=== PATIENT | male | born 1950 | race Caucasian/White ===

== ENCOUNTER 2020-08-12 22:06 | Emergency (ER) | payer OTHER, MEDICARE ==
--- NOTE | 2020-08-12 22:18 | ER Document Report ---
ED Medical Screen (RME) - General Chief Complaint: Fever Stated Complaint: FEVER Time Seen by Provider: 08/12/20 22:12 Primary Care Provider: MARKEL WARD MD [Primary Care Provider] - Follow up as needed Mode of Arrival: Medic Information source: Patient, Emergency Med Personnel Notes: 69-year-old male presented to ED for fever. He does have a history of aortic valve replacement COPD mild cardiac infarction. In route EMS did do a rapid Covid which was negative his lactate was 0.9 he did have a fever when they first picked him up of 100.4 with a pulse of 97. His last temperature was 99.7 after they gave him 975 of Tylenol. Vital signs in the pit area were temperature 99.8 pulse 97 blood pressure 105/63 respirations 24 and O2 sat 97% due to the fact that his blood pressure went from 145/81 by EMS to 105/63 at initial vital signs we did decide to redraw his blood pressure and blood pressure now 99/54. He did have a [place] in mid May with a mitral valve replacement and states he has been sick since his [place]. He states he does have a home health nurse since he came back home. He states he has been sick since he got out of the hospital. I have greeted and performed a rapid initial assessment of this patient. A comprehensive ED assessment and evaluation of the patient, analysis of test results and completion of medical decision making process will be conducted by an additional ED providers. TRAVEL OUTSIDE OF THE [place] IN LAST 30 DAYS: No Physical Exam - Vital signs Vitals: Temp Pulse Resp BP Pulse Ox 99.8 F 97 24 H 105/63 97 08/12/20 22:12 08/12/20 22:12 08/12/20 22:12 08/12/20 22:12 08/12/20 22:12 Course - Vital Signs Vital signs: Temp Pulse Resp BP Pulse Ox 99.8 F 97 24 H 99/54 L 97 08/12/20 22:12 08/12/20 22:12 08/12/20 22:12 08/12/20 22:24 08/12/20 22:12 Doctor's Discharge - Discharge Referrals: MARKEL WARD MD [Primary Care Provider] - Follow up as needed
[2020-08-12] MEDS ORDERED: NORMAL SALINE 1000 ML 1,000 ML IV ONE (22:40)
[2020-08-12 22:50] LABS: ABSOLUTE BASOPHILS # (AUTO) 0.1 10^3/uL (0.0-0.2); ABSOLUTE EOSINOPHILS # (AUTO) 0.1 10^3/uL (0.0-0.6); ABSOLUTE LYMPHOCYTES (AUTO) 0.7 10^3/uL (0.5-4.7); ABSOLUTE MONOCYTES (AUTO) 0.5 10^3/uL (0.1-1.4); ABSOLUTE NEUT (AUTO) 9.3 10^3/uL (1.7-8.2); BASOPHILS % (AUTO) 1.4 % (0-2); EOSINOPHILS % (AUTO) 0.7 % (0-6); HEMATOCRIT 32.8 % (37.9-51.0); HEMOGLOBIN 11.4 g/dL (13.5-17.0); LYMPHOCYTES % (AUTO) 6.6 % (13-45); MEAN CORPUSCULAR HEMOGLOBIN 30.3 pg (27.0-33.4); MEAN CORPUSCULAR HGB CONC 34.9 g/dL (32.0-36.0); MEAN CORPUSCULAR VOLUME 87 fl (80-97); MONOCYTES % (AUTO) 4.7 % (3-13); PLATELET COUNT 281 10^3/uL (150-450); RED BLOOD COUNT 3.77 10^6/uL (4.35-5.55); RED CELL DISTRIBUTION WIDTH 16.3 % (11.5-14.0); SEGMENTED NEUTROPHILS % (AUTO) 86.6 % (42-78); TOTAL CELLS COUNTED % (AUTO) 100 %; WHITE BLOOD COUNT 10.7 10^3/uL (4.0-10.5)
[2020-08-12 23:03] LABS: ALBUMIN 3.6 g/dL (3.5-5.0); ALKALINE PHOSPHATASE 143 U/L (38-126); ANION GAP 9 (5-19); ASPARTATE AMINO TRANSFERASE 43 U/L (17-59); BILIRUBIN,DIRECT 0.1 mg/dL (0.0-0.4); BILIRUBIN,TOTAL 0.4 mg/dL (0.2-1.3); BLOOD UREA NITROGEN 34 mg/dL (7-20); CALCIUM 8.8 mg/dL (8.4-10.2); CARBON DIOXIDE 27 mmol/L (22-30); CHLORIDE 95 mmol/L (98-107); GLUCOSE 147 mg/dL (75-110); POTASSIUM 4.8 mmol/L (3.6-5.0); TOTAL PROTEIN 8.4 g/dL (6.3-8.2)
[2020-08-12 23:10] LABS: INTERNATIONAL RATION (INR) 1.06
[2020-08-12 23:11] LABS: PARTIAL THROMBOPLASTIN TIME 32.7 SEC (23.5-35.8)
--- NOTE | 2020-08-13 00:17 | RADIOLOGY REPORT (SQ) ---
EXAM DESCRIPTION: CHEST SINGLE VIEW CLINICAL HISTORY: 69 years Male, Cough fever COMPARISON: None. FINDINGS: Lungs: Lungs are clear. No pneumonia or edema. No pneumothorax or pleural effusion. Mediastinum: Vascular calcifications are present in the thoracic aorta. Heart size is normal. Bones: Sternal wires are identified. IMPRESSION: No acute process. No pneumonia or edema.
[2020-08-13] MEDS ORDERED: NORMAL SALINE 1000 ML 1,000 ML IV ONE (01:23)
--- NOTE | 2020-08-13 02:37 | ER Document Report ---
ED General - General Chief Complaint: Fever Stated Complaint: FEVER Time Seen by Provider: 08/12/20 22:12 Primary Care Provider: MARKEL WARD MD [NO LOCAL MD] - Follow up as needed Mode of Arrival: Medic Information source: Patient TRAVEL OUTSIDE OF THE [place] IN LAST 30 DAYS: No - HPI Context: Chief Complaint: [Weakness and fever] [ This is a 69-year-old male with history of ME back in May 2020, heart valve replacement, COPD presenting with a chief complaint of low-grade fever and generalized weakness. Patient states his symptoms started today. Patient denies chills, history of Covid infection, known exposure to Covid positive persons or persons under investigation for Covid infection, loss of sense of t aste or loss of sense of smell, chest pain, shortness of breath, nausea, vomiting. Patient states he has not felt well since his heart attack and heart valve replacement in May of this year that was done at a [facility] in [place]. Patient states that he has not had any problems in terms of urinary frequency, dysuria, flank pain, hematuria. Patient states that he is circumcised. ] History obtained from [patient] Symptoms began:[Yesterday morning] Onset: [Gradual] Timing: [Gradual] Quality: [Patient states he just feels general fatigue] Intensity: [0 out of 5] Location: [Generalized] Radiation: [Denies] [The pain does not migrate to a new location.] Aggravating factors: Exertion Relieving factors: [none] [Denies] SOB [Denies] nausea [Denies] vomiting [Denies] sweats Positive fever [Denies] cough [Denies] calf or leg swelling or pain - Related Data Home Medications: asa. amlopine. atorvast. catapres. robituss. folic acid. metoprolol Past Medical History - General Information source: Patient, Emergency Med Personnel - Social History Smoking Status: Current Every Day Smoker Chew tobacco use (# tins/day): No Frequency of alcohol use: None Drug Abuse: None Family History: Reviewed & Not Pertinent - Past Medical History Cardiac Medical History: Reports: Hx Heart Attack Pulmonary Medical History: Reports: Hx COPD Past Surgical History: Reports: Hx Valve Replacement Review of Systems - Review of Systems Notes: Review of systems as below unless otherwise stated in HPI. CONSTITUTIONAL Positive fever, [No] chills. Positive generalized fatigue EYES [No] eye pain. ENT [No] URI symptoms, [No] sore throat, [No] ear pain. CARDIOVASCULAR [No] chest pain, [No] palpitations, [No] edema. RESPIRATORY [No] Cough, [No] SOB, [No] wheezing. GASTROINTESTINAL [No] abdominal pain, [No] nausea, [No] Diarrhea, [No] Vomiting, [No] constipation, [No] melena, [No] rectal bleeding. GENITOURINARY [No] dysuria, [No] urinary frequency, [No] hematuria, [No] urinary urgency MUSCULOSKELETAL [No] Back pain. SKIN [No] Rash. NEUROLOGIC [No] Headache, [No] recent seizures, [No] paralysis,[No] parathesias. ENDOCRINE [No] polyuria. PSYCHIATRIC [No] depression. Physical Exam - Vital signs Vitals: Temp Pulse Resp BP Pulse Ox 99.8 F 97 24 H 105/63 97 08/12/20 22:12 08/12/20 22:12 08/12/20 22:12 08/12/20 22:12 08/12/20 22:12 - Notes Notes: CONSTITUTIONAL [Vital signs reviewed, Patient appears comfortable, Alert and oriented X 3, Normal stature. Patient appears to be in no acute distress and has a nontoxic appearance] HEAD [Atraumatic, Normocephalic.] EYES [Eyes are normal to inspection, No discharge from eyes, Extraocular muscles intact, Sclera are normal, Conjunctiva are normal.] ENT [External ears normal to inspection, Nose examination normal, Mouth normal to inspection.] NECK [Normal ROM, No jugular venous distention, No meningeal signs, ] RESPIRATORY CHEST [Chest is nontender, Breath sounds normal, No respiratory distress.] CARDIOVASCULAR [RRR, No murmurs, Normal S1 S2, No rub, No gallop.] ABDOMEN [Abdomen is nontender, No pulsatile masses, No other masses, Bowel sounds normal, No distension, No peritoneal signs, No hernias.] BACK [There is no CVA Tenderness, There is no tenderness to palpation, Normal inspection.] UPPER EXTREMITY [Inspection normal, No cyanosis, No clubbing, No edema, LOWER EXTREMITY [Inspection normal, No cyanosis, No clubbing, No edema, No calf tenderness, NEURO [No focal motor deficits, No focal sensory deficits other than being very hard of hearing, Speech normal.] SKIN [Skin is warm, Skin is dry, Skin is normal color.] PSYCHIATRIC [Normal affect. ] Course - Re-evaluation Re-evalutation: 08/13/20 05:13 Patient states he is feeling better. Results of ED MSE discussed with patient. All questions were answered prior to discharge. Emergency signs and symptoms, reasons to return to the emergency department discussed with patient. 08/13/20 05:14 - Vital Signs Vital signs: Temp Pulse Resp BP Pulse Ox 99.8 F 97 30 H 151/81 H 100 08/12/20 22:12 08/12/20 22:12 08/13/20 05:21 08/13/20 05:21 08/13/20 05:20 - Laboratory Results Result Diagrams: 08/12/20 22:34 08/12/20 22:34 Laboratory Results Interpreted: 08/12/20 08/12/20 08/13/20 22:34 22:34 05:27 WBC 10.7 H RBC 3.77 L Hgb 11.4 L Hct 32.8 L RDW 16.3 H Lymph % (Auto) 6.6 L Absolute Neuts (auto) 9.3 H Seg Neutrophils % 86.6 H Sodium 131.2 L Chloride 95 L BUN 34 H Glucose 147 H Alkaline Phosphatase 143 H Total Protein 8.4 H Urine Protein 100 H Urine Ascorbic Acid 40 H Critical Laboratory Results Reviewed: No Critical Results Attending or Supervising Physician who Reviewed Labs: WENDY JON IV - All of the patient's labs reviewed by this MD, including a white count of 10.7 and a neutrophil count of 86.6. Patient's troponin is 0.048 and he denies any s ensation of chest pressure or pain. Repeat troponin is trending downward - Radiology Results Critical Radiology Results Reviewed: No Critical Results Attending or Supervising Physician who Reviewed Radiology: WENDY JON IV - EKG Interpretation by Me Additional EKG results interpreted by me: 08/13/20 05:19 EKG obtained on 08/12/2020 at 2241 hrs. was interpreted by this MD. Findings: Normal sinus rhythm, heart rate 96, normal axis, WI interval appears within normal limits, P waves preceding QRS complexes, QRS complexes appear narrow, QTC is 455, there are no obvious patterns of ST segment elevation, depression or reciprocal changes seen to suggest acute myocardial ischemia or infarction. Impression: Normal sinus rhythm with nonspecific ST segments. There is no prior EKG available for comparison. Discharge - Discharge Clinical Impression: Dehydration Condition: Stable Disposition: HOME, SELF-CARE Additional Instructions: Return to the Emergency Department without delay if any worse. HOME CARE INSTRUCTIONS & INFORMATION: Thank you for choosing us for your medical needs. We hope you're satisfied with the care you received. After you leave, you must properly care for your problem and, at the same time, observe its progress. Any condition can change. Some illnesses can change rapidly over hours or days. If your condition worsens, return to the Emergency Department or see your physician promptly. ABOUT YOUR X-RAYS AND EKG'S: If you had an EKG or X-rays taken, they have been read by the Emergency Physician. The X-rays and EKG's will also be read by a Radiologist or Tank Washer within 24 hours. If discrepancies are noted, you will be notified by telephone. Please be certain the ED has a correct telephone number & address where you can be reached. Also, realize that some fractures or abnormalities do not show up on initial X-rays. If your symptoms continue, see your physician. ABOUT YOUR LABORATORY TEST: If you had laboratory tests, the results have been reviewed by the Emergency Physician. Some test results (for example cultures) may not be available for several days. You will be contacted if any test result shows you need additional treatment. Please be certain the ED has a correct telephone number and address where you can be reached. ABOUT YOUR MEDICATIONS: You will receive instructions on how to take your medicine on the prescription label you receive. Additional information may be provided by the Pharmacy. If you have questions afterwards, call the ED for clarification or further instructions. Some prescribed medications may cause drowsiness. Do not perform tasks such as driving a car or operating machinery without consulting your Pharmacist. If you feel you need a refill of pain medication, your condition will need re-evaluation. Please do not call for a refill of any medication. ABOUT YOUR SIGNATURE: Signature of this document acknowledges to followin. Understanding that you received emergency treatment and that you may be released before al medical problems are known or treated. Please be certain the ED has a correct phone number & address where you can be reached. 2. Acknowledgement that you will arrange for follow-up care as recommended. 3. Authorization for the Emergency Physician to provide information to your follow-up Physician in order to maximize your care. AT ANY TIME, IF YOUR SYMPTOMS CHANGE SIGNIFICANTLY OR WORSEN OR YOU DEVELOP NEW SYMPTOMS, RETURN TO THE EMERGENCY DEPARTMENT IMMEDIATELY FOR RE-EVALUATION. OUR GOAL IS TO PROVIDE EXCELLENT MEDICAL CARE! WE HOPE THAT WE HAVE MET YOUR EXPECTATIONS DURING YOUR EMERGENCY DEPARTMENT VISIT AND THAT YOU FEEL YOU HAVE RECEIVED EXCELLENT CARE! Dehydration Dehydration can result from vomiting or diarrhea, fever, or decreased intake of fluids. If severe, hospitalization and intravenous fluids may be required. Most cases are treated at home with fluids by mouth. For the next 24 hours, drink lots of clear fluids. In mild cases, this can be soda pop or sports drinks. For more severe dehydration, the doctor may recommend special fluids such as Pedialyte or Lytren. Try to get three liters ( 3 quarts) of fluid per day. If vomiting occurs, continue to drink the fluids frequently (every 15 to 20 minutes), but in small amounts (one or two ounces). Depending on the type of dehydration, the doctor may prescribe antinausea medicine or potassium replacements. Call the doctor or return for re-examination if you become progressively weak, vomit repeatedly, or have other new symptoms. Referrals: MARKEL WARD MD [NO LOCAL MD] - Follow up as needed
[2020-08-13 03:13] LABS: A TYPE INFLUENZA AG NEGATIVE (NEGATIVE); B INFLUENZA AG NEGATIVE (NEGATIVE)
[2020-08-13 06:03] LABS: APPEARANCE,URINE CLEAR; BILIRUBIN,URINE NEGATIVE (NEGATIVE); COLOR,URINE YELLOW; GLUCOSE, URINE NEGATIVE (NEGATIVE); KETONES,URINE NEGATIVE (NEGATIVE); LEUKOCYTE ESTERASE,URINE NEGATIVE (NEGATIVE); NITRITE,URINE NEGATIVE (NEGATIVE); PROTEIN,URINE 100 mg/dL (NEGATIVE); URINE SPECIFIC GRAVITY 1.015; UROBILINOGEN,URINE NEGATIVE mg/dL (<2.0)
[2020-08-13 08:47] VITALS: BP 154/73
--- NOTE | 2020-08-13 09:56 | EKG REPORT ---
SEVERITY:- ABNORMAL ECG - SINUS RHYTHM LVH WITH SECONDARY REPOLARIZATION ABNORMALITY INFERIOR INFARCT, AGE INDETERMINATE : Confirmed by: Bronson Ku MD 13-Aug-2020 09:56:18
== END 2020-08-13 08:30 | disposition home or self-care (01) ==
LOC: ER 22:06
DX: E86.0 Dehydration (principal); R50.9 Fever, unspecified; R53.1 Weakness; F17.200 Nicotine dependence, unspecified, uncomplicated; J44.9 Chronic obstructive pulmonary disease, unspecified; Z95.1 Presence of aortocoronary bypass graft; Z79.82 Long term (current) use of aspirin; Z20.828 Contact with and (suspected) exposure to other viral communicable diseases
CPT/HCPCS: 93005; 99285; 96360; 96361; 36415; 87040; 87086; 83605; 85025; 85610; 85730; 87635; 80053; 81001; 84484; 87804; 71045; 93010; J7030; C9803